=== PATIENT | female | born 1970 | race Caucasian/White ===

== ENCOUNTER → 2020-10-03 | Outpatient (CLI) | payer BC | LOC: MAMO 14:45 | DX: Z12.31 Encounter for screening mammogram for malignant neoplasm of breast (principal) | CPT/HCPCS: 77063; 77067 ==

== ENCOUNTER → 2021-10-05 | Outpatient (CLI) | payer BC | LOC: MAMO 09:00 | DX: Z12.31 Encounter for screening mammogram for malignant neoplasm of breast (principal) | CPT/HCPCS: 77063; 77067 ==